=== PATIENT | female | born 1950 | race African-American/Black ===

== ENCOUNTER → 2018-11-30 08:55 | Outpatient (CLI) | payer MEDICARE, SELFPAY ==
[2018-11-30] VITALS (10 sets, daily range): BP systolic 102–130; BP diastolic 53–92; PULSE 77–107; RESP 12–18; TEMP 36.5; O2SAT 100; BMI 19.5
--- NOTE | 2018-11-30 | ASPIGT_PTH ---
PATIENT: CECILE LOCKWOOD LOC: [place] U#:[id number] AGE/SX: 75/F ROOM: RE11/30/[address]: Dr. Duane Ryan DO : 1950 BED: DIS: SPEC #: [id number] RECD: 11/30/18 14:09 STATUS: MIKE JULITO #: [id number] DENNY: 11/30/18 00:[address]: Duane Ryan DEPT: SURGICAL PATHOLOGY RECD BY: Karlos Guerra ENTERED: 11/30/18 14:09 SP TYPE: ASP RAD OTHR DR: Dr. Lokesh Velazquez MD Tissues: Lung, NOS Procedures: FNA Specimen Adequacy Special Stain Group II Surgery Specimen Level IV Imprint (control) HEADER OPERATION: Right lung biopsy PRE-OP DIAGNOSIS: Lung mass TISSUE SUBMITTED: Right upper lobe lung, CT-guided core biopsy MICROSCOPIC DIAGNOSIS Right upper lobe lung, CT-guided core biopsy: Non-small cell carcinoma, favor squamous cell carcinoma See comment. CONCEPCIÓN:naz 12/02/18 COMMENT The specimen is evaluated at the time of biopsy by Dr. Hill. Immediate Evaluation = Negative for malignant cells. As per patient's EMR, the patient has history of tongue malignancy. Correlation with clinical, radiologic findings and appropriate follow up are necessary. Case has been reviewed in consultation with Dr. Yuan who concurs with the above diagnosis. IDC:AM MICROSCOPIC DESCRIPTION Slides are reviewed. GROSS DESCRIPTION Received in fixative is one container labeled with the patient's name and designated RUL lung, CT-guided core biopsy. The specimen consists of multiple irregular fragments of hooper soft tissue that in aggregate measure 0.7 x 0.1 x 0.1 cm. The entire specimen is submitted in one cassette. Two touch imprints are prepared at the time of core biopsy. / CONCEPCIÓN:naz 11/30/18 TC: 0 CPT: 53102, 91571 ADDENDUM ADDENDUM ADDENDUM ADDENDUM ADDENDUM ADDENDUM ADDENDUM 12/22/2018 10:02 ADDENDUM 12/22/2018 10:02 ADDENDUM 12/22/2018 10:02 ADDENDUM 12/22/2018 10:02 ADDENDUM 12/22/2018 10:02 PD-L1 (KEYTRUDA) IMMUNOHISTOCHEMISTRY ANALYSIS FROM [facility] INTERPRETATION: High expression Tumor proportion score: 80% Please see complete report in e-chart or EMR for complete details
--- NOTE | 2018-11-30 | IMM_PTH ---
PATIENT: CECILE LOCKWOOD LOC: CT U#:[id number] AGE/SX: 75/F ROOM: RE11/30/[address]: Dr. Duane Ryan DO : 1950 BED: DIS: SPEC #: [id number] RECD: 12/02/18 11:35 STATUS: MIKE REQ #: [id number] DENNY: 11/30/18 00:[address]: Duane Ryan DEPT: IMMUNOHISTOCHEMISTRY RECD BY: Denia Paula ENTERED: 12/02/18 11:36 SP TYPE: IMMUNO OTHR DR: Dr. Lokesh Velazquez MD Tissues: Lung, NOS Procedures: NAPSIN A (add) CK20 (add) CK5-6 (add) CK7 (add) CK8 (add) P16 (add) SC (add) TTF1 (add) P40 (add) ER (initial) PHYSICIAN & INSTITUTION [place] [id number] SPECIMEN INFORMATION: Tissue Source: Right upper lobe lung, CT-guided core biopsy Clinical Info: Lung mass Specimen Number: [id number] CPT code: 91315, 81670 x9 METHODOLOGY: Deparaffinized sections of prefer/formalin-fixed tissue or PAP/DQ stained slides are incubated with monoclonal/polyclonal antibodies/oligonucleotide probes. Localization is made via biotin free immunoperoxidase method. Appropriate controls are performed and reacted as expected. Results on target cell population are indicated in the following table: RESULTS: ANTIBODY / CLONE RESULT ER (6F11) negative SC (1E2) negative CK7 (OV-TL12/30) negative CK8 (57gpcmB84) negative CK20 (KS20.8) negative TTF-1 (8G7G3/1) negative Napsin A (Rabbit Polyclonal) negative CK5-6 (D5 & 1684) positive P40 (BC28) positive P16 (E6H4) negative These tests were developed and their performance characteristics determined by [facility]. They may not have been cleared or approved by the U.S. Food and Drug Administration. The FDA has determined that such clearance or approval is not necessary. INTERPRETATION: Right upper lobe lung, CT-guided core biopsy: Non-small cell carcinoma, favor squamous cell carcinoma. SJ:naz 12/05/18
[2018-11-30 09:39] LABS: Absolute Lymphocyte Count 1.86 X10^3/ul (0.83-4.51); Absolute Neutrophil Count 5.8 X10^3/uL (2.0-7.7); Basophil# 0.03 X10^3/uL; Basophil% 0.3 % (0-1); Eosinophil# 0.18 X10^3/uL; Hematocrit 26.7 % (37-47); Hemoglobin 8.3 g/dl (12.0-15.0); Lymphocyte # 1.86 X10^3/ul (4.0); Mean Corp Hgb Conc 31.1 g/gl (32-36); Mean Corpuscular Hgb 25.2 pg (27.0-32.0); Mean Corpuscular Volume 80.9 fL (81-99); Mean Platelet Vol. 9.1 fl (6.2-12.0); Monocyte# 0.98 X10^3/uL; Monocyte% 11.1 % (0-10); Neutrophil # 5.79 X10^3/uL (2.7-7.7); Neutrophil % 65.5 % (47-70); Platelet Count 341 K/mm3 (150-450); RBC Distribution Width CV 17.1 % (11.6-14.6); RBC Distribution Width SD 50.9 fl (35.1-43.9); White Blood Count 8.9 K/mm3 (4.4-11.0)
[2018-11-30 09:46] LABS: POSITIVE COUNT NO; POSITIVE DIFFERENTIAL NO; POSITIVE MORPHOLOGY NO
[2018-11-30 09:54] LABS: International Normalized Ratio 1.1; Prothrombin Time (Protime)PT. 13.9 SECONDS (11.7-14.9)
[2018-11-30 09:55] LABS: Partial Thromboplast Time 32.1 Seconds (24.1-36.2)
--- NOTE | 2018-11-30 10:37 | CT_ITS ---
PROCEDURE: CT GUIDED CORE NEEDLE BIOPSY OF A peripheral right upper lobe lung nodule. INDICATION: Female, 68 years old. History of metastatic head and neck cancer. PHYSICIAN: Dr. Pedicelli. [place] CONSENT: Written informed consent was obtained having explained the risks, benefits and alternatives in detail with the patient who accepted the risks and agreed to proceed. Laboratory review and clinical assessment was performed. CONSCIOUS SEDATION PROTOCOL: The Drugs used were: 2 mg Versed, IV., and 50 mcg Fentanyl, IV. The sedation time was: 13 minutes. Conscious sedation was started at 10:50 AM and terminated at 11:03 AM. The conscious sedation protocol was independently monitored. RADIATION DOSAGE (If Supplied By Facility): CTDIvol = ( 15 ) mGy, DLP = ( 333.20 ) mGycm Individualized dose optimization techniques were used for this CT. TECHNIQUE: The patient was placed in the left side down decubitus position. A noncontrast CT was performed to localize the lesion in the peripheral aspect of the right upper lobe . The skin surface was prepped and draped in a sterile fashion. 1% lidocaine was used for local anesthesia. Using CT guidance, a 20-gauge coaxial biopsy device was advanced to the periphery of the lesion. A total of 3 core specimens were obtained. The specimens were placed in a formalin solution. A post procedure CT demonstrated no adverse sequelae or pneumothorax. The patient tolerated the procedure well without adverse event. A negative biopsy does not exclude malignancy. Further imaging or clinical followup based on patient condition and degree of clinical suspicion for malignancy. Suggest rebiopsy, if biopsy results do not match with clinical scenario. CT/Biopsy/Inj or Needle Placement IMPRESSION: 1. CT directed core needle biopsy of the peripheral right upper lobe nodule using CT image guidance with image documentation as described. Pathology results are pending. 2. Conscious Sedation protocol utilized with independent monitoring. Electronically Signed: Garfield Mistry, at 12:26 EDT , Service support ,
[2018-11-30] MEDS: fentaNYL 100 MCG/2 ML Ampul IV ×2 (10:49→11:00)
[2018-11-30] MEDS: Midazolam 2 MG/2 ML Syringe IV ×2 (10:50→11:00)
--- NOTE | 2018-11-30 11:10 | RAD_ITS ---
STUDY: X-RAY CHEST REASON FOR EXAM: Female, 68 years old. Post right lung biopsy radiograph. TECHNIQUE: AP inspiration and expiration views were obtained. COMPARISON: None. FINDINGS: The patient is status post right lung biopsy. There is no evidence of pneumothorax on the immediate post right lung biopsy radiograph. RAD/Chest Insp/Exp 2 View IMPRESSION: No evidence of pneumothorax on the immediate post right lung biopsy radiograph. Electronically Signed: Garfield Mistry, at 11:59 EDT , Service support ,
--- NOTE | 2018-11-30 13:04 | RAD_ITS ---
STUDY: X-RAY CHEST REASON FOR EXAM: Female, 68 years old. 2 hour postright lung biopsy radiograph. TECHNIQUE: AP inspiration/ expiration views. COMPARISON: Comparison is made with prior examination done earlier in the day. FINDINGS: No evidence of pneumothorax on the delayed postright lung biopsy.. RAD/Chest Insp/Exp 2 View IMPRESSION: No evidence of pneumothorax on the delayed post right lung biopsy radiograph. Electronically Signed: Garfield Mistry, at 13:30 EDT , Service support ,
== END ==
PROVIDERS: Family Provider Internal Medicine; PCP Internal Medicine; Visit Provider Student in an Organized Health Care Education/Training Program
DX: C34.11 Malignant neoplasm of upper lobe, right bronchus or lung (principal); R79.1 Abnormal coagulation profile; Z85.89 Personal history of malignant neoplasm of other organs and systems; Z79.82 Long term (current) use of aspirin; Z79.899 Other long term (current) drug therapy
CPT/HCPCS: 32405; 36415; 71046; 77012; 85025; 85610; 85730; 88172; 88305; 88313; 88341; 88342; 99156; J7030; J7040